=== PATIENT | male | born 1975 | race African-American/Black ===

== ENCOUNTER 2020-06-10 09:05 | Emergency (ER) | payer MEDICAID, OTHER ==
[~2020-06-10] VITALS: Ht 182.9 cm; Wt 79.8 kg
[2020-06-10 09:17] VITALS: BP 109/72
[2020-06-10] MEDS ORDERED: KETOROLAC TROMETH 60MG/2ML VIAL IM ONE (09:30)
== END 2020-06-10 11:07 | disposition home or self-care (01) ==
LOC: EDBD 09:05 → ER 09:05
DX: M51.26 Other intervertebral disc displacement, lumbar region (principal); M54.16 Radiculopathy, lumbar region
CPT/HCPCS: 72131; 96372; 99284; J1885

== ENCOUNTER 2022-12-20 18:16 | Inpatient (IN) | payer MEDICAID ==
[~2022-12-20] VITALS: Ht 185.4 cm; Wt 75.7 kg
[2022-12-20] MEDS ORDERED: ACETAMINOPHEN 325 MG TAB PO ONE (18:45)
[2022-12-20] MEDS ORDERED: CEFTRIAXONE SODIUM 2 GM in D5W 5% 100 ML IV ONE (18:45)
[2022-12-20] MEDS ORDERED: SODIUM CHLORIDE 0.9% 2,450 ML IV ONE (18:45)
[2022-12-20 19:17] LABS: Basophils # (auto) 0 10 ^3/uL (0-0.2); Basophils % (auto) 0.4 % (0.0-2.0); Eosinophils # (auto) 0.1 10 ^3/uL (0-0.8); Hemoglobin 14.9 g/dL (13.5-17.5); Lymphocytes # (auto) 0.2 10 ^3/uL (0.4-5.4); Lymphocytes % (auto) 3.1 % (10.0-50.0); Mean Corpuscular Hgb Conc. 33.9 g/dL (32.0-36.0); Mean Corpuscular Volume 94.4 fL (80.0-100.0); Monocytes # (auto) 0.2 10 ^3/uL (0-1.3); Monocytes % (auto) 2.4 % (0.0-12.0); Neutrophils # (auto) 6.4 10 ^3/uL (1.6-8.6); Neutrophils % (auto) 93.1 % (37.0-80.0); Red Blood Cells 4.66 10^6/uL (4.5-5.90); White Blood Cell 6.8 10^3/uL (4.4-10.8)
[2022-12-20 19:33] LABS: INR 1.06 (0.9-1.15); Partial Thromboplastin Time 28.8 SEC (24.5-34.5)
[2022-12-20 20:03] LABS: Albumin 3.8 g/dL (3.4-5.0); Calcium 8.9 mg/dL (8.5-10.1)
[2022-12-20 20:10] LABS: Lactic Acid w/Reflex 2.3 mmol/L (0.4-2.0)
[2022-12-20 20:14] LABS: BUN/Creatinine Ratio 10.9 (10.0-20.0); Bilirubin, Total 0.5 mg/dL (0.2-1.0); Total Protein 6.9 g/dL (6.4-8.2)
[2022-12-20 20:20] VITALS: PULSE 109; RESP 22; O2SAT 94
[2022-12-20] MEDS ORDERED: NITROGLYCERIN 0.4 MG SL TAB SL PRN (23:00)
[2022-12-20] MEDS ORDERED: MORPHINE SULFATE INJ 2 MG/ml SYRG IV PRN (23:00)
[2022-12-20] MEDS ORDERED: ACETAMINOPHEN 325 MG TAB PO PRN (23:00)
[2022-12-20] MEDS ORDERED: ONDANSETRON HCL 4 MG/2 ML VIAL IV PRN (23:00)
[2022-12-20] MEDS ORDERED: DOCUSATE SOD 100 MG CAP PO PRN (23:00)
[2022-12-20] MEDS ORDERED: HYDROcodone-ACET 5/325MG TAB PO PRN (23:00)
[2022-12-21] MEDS: SODIUM CHLORIDE 0.9% 1,000 ML IV SCH ×3 (01:45→22:31)
[2022-12-21 02:40] LABS: Urine Bacteria NONE SEEN /hpf (None Seen); Urine Blood Negative /uL (Negative); Urine Mucus FEW (None Seen); Urine Specific Gravity 1.024 (1.001-1.035); Urine WBC <1 /hpf (0 - 3)
[2022-12-21 05:22] LABS: Basophils # (auto) 0 10 ^3/uL (0-0.2); Basophils % (auto) 0.5 % (0.0-2.0); Eosinophils # (auto) 0 10 ^3/uL (0-0.8); Eosinophils % (auto) 0.7 % (0.0-7.0); Hematocrit 40.2 % (41.0-53.0); Hemoglobin 13.6 g/dL (13.5-17.5); Lymphocytes # (auto) 0.7 10 ^3/uL (0.4-5.4); Lymphocytes % (auto) 12.1 % (10.0-50.0); Mean Corpuscular Hemoglobin 32.2 pg (28.0-32.0); Mean Corpuscular Hgb Conc. 33.9 g/dL (32.0-36.0); Mean Corpuscular Volume 95.1 fL (80.0-100.0); Monocytes # (auto) 0.3 10 ^3/uL (0-1.3); Monocytes % (auto) 6.4 % (0.0-12.0); Neutrophils # (auto) 4.4 10 ^3/uL (1.6-8.6); Neutrophils % (auto) 80.3 % (37.0-80.0); Red Blood Cells 4.23 10^6/uL (4.5-5.90); Red Cell Distribution Width 12.7 % (11.8-14.3); White Blood Cell 5.5 10^3/uL (4.4-10.8)
[2022-12-21 06:00] LABS: Calcium 7.9 mg/dL (8.5-10.1)
[2022-12-21 06:03] LABS: BUN/Creatinine Ratio 10.1 (10.0-20.0)
[2022-12-21 06:04] LABS: Bilirubin, Total 0.6 mg/dL (0.2-1.0); Total Protein 6.2 g/dL (6.4-8.2)
[2022-12-21 08:00] VITALS: PULSE 63; RESP 20; O2SAT 99
[2022-12-21] MEDS: cefTRIAXone 1GM/50ML D5W 50 ML IV SCH (09:59)
[2022-12-21 15:00] VITALS: BP 104/60; PULSE 93; RESP 16; TEMP 98.2; O2SAT 98
[2022-12-21 20:00] VITALS: PULSE 77; RESP 18; O2SAT 98
[2022-12-21 21:49] VITALS: BP 127/81; PULSE 85; RESP 17; TEMP 97.7; O2SAT 98
[2022-12-21] MEDS ORDERED: LORazepam 2MG/ML-1ML VIAL IV PRN (22:00)
[2022-12-22 04:49] VITALS: BP 147/75; PULSE 87; RESP 15; TEMP 98; O2SAT 98
[2022-12-22 06:17] LABS: Basophils # (auto) 0 10 ^3/uL (0-0.2); Basophils % (auto) 1.1 % (0.0-2.0); Eosinophils # (auto) 0.3 10 ^3/uL (0-0.8); Eosinophils % (auto) 7.1 % (0.0-7.0); Hematocrit 40.2 % (41.0-53.0); Hemoglobin 13.6 g/dL (13.5-17.5); Lymphocytes # (auto) 0.9 10 ^3/uL (0.4-5.4); Lymphocytes % (auto) 22.7 % (10.0-50.0); Mean Corpuscular Hemoglobin 31.9 pg (28.0-32.0); Mean Corpuscular Hgb Conc. 33.9 g/dL (32.0-36.0); Mean Corpuscular Volume 94.3 fL (80.0-100.0); Monocytes # (auto) 0.4 10 ^3/uL (0-1.3); Monocytes % (auto) 9.5 % (0.0-12.0); Neutrophils # (auto) 2.3 10 ^3/uL (1.6-8.6); Neutrophils % (auto) 59.6 % (37.0-80.0); Nucleated Red Blood Cells % 0.1 %; Red Blood Cells 4.27 10^6/uL (4.5-5.90); White Blood Cell 3.8 10^3/uL (4.4-10.8)
[2022-12-22 07:03] LABS: BUN/Creatinine Ratio 17.2 (10.0-20.0); Calcium 8.4 mg/dL (8.5-10.1)
[2022-12-22 08:00] VITALS: PULSE 70
[2022-12-22 08:30] VITALS: BP 105/67; PULSE 68; RESP 18; TEMP 98.3
[2022-12-22 09:00] VITALS: BP 105/67; PULSE 68; RESP 18; TEMP 98.3; O2SAT 100
[2022-12-22] MEDS: cefTRIAXone 1GM/50ML D5W 50 ML IV SCH (09:28)
[2022-12-22 13:00] VITALS: BP 104/65; PULSE 59; RESP 18; TEMP 98.6; O2SAT 91
[2022-12-22] MEDS: SODIUM CHLORIDE 0.9% 1,000 ML IV SCH (13:57)
[2022-12-22 14:43] VITALS: BP 104/65; PULSE 59; RESP 18; TEMP 98.6; O2SAT 95
== END 2022-12-22 16:10 | disposition home or self-care (01) | DRG 53 ==
LOC: ER 18:16 → EDBD 18:16 → TELE 22:56 → TELE-CENTR 12-21 14:32
PROVIDERS: ADMIT Internal Medicine Pulmonary Disease; ATTEND Internal Medicine Pulmonary Disease
DX: G40.909 Epilepsy, unspecified, not intractable, without status epilepticus (principal); E87.21 Acute metabolic acidosis; R65.10 Systemic inflammatory response syndrome (SIRS) of non-infectious origin without acute organ dysfunction; R32 Unspecified urinary incontinence; G35 Multiple sclerosis; Z82.0 Family history of epilepsy and other diseases of the nervous system
CPT/HCPCS: 36415; 70450; 71045; 80048; 80053; 81001; 83605; 84484; 85025; 85610; 85730; 87040; 87086; 93005; 95819; 96361; 96365; 97163; G0378; J0696; J7060